=== PATIENT | female | born 1950 | race Asian ===

== ENCOUNTER 2020-04-02 06:54 | Day surgery (SDC) | payer MEDICARE, OTHER ==
[~2020-04-02] VITALS: Ht 157.5 cm; Wt 61.2 kg
[2020-04-02] MEDS ORDERED: LIDOCAINE 2% 100 MG/5 ML UJET TP ONE (07:44)
[2020-04-02] MEDS ORDERED: fentaNYL citrate 0.05 MG/ML VIAL ONE (07:44)
[2020-04-02] MEDS ORDERED: fentaNYL citrate 0.05 MG/ML VIAL IVP ONE (09:05)
== END 2020-04-02 09:15 | disposition home or self-care (01) ==
LOC: MDS 06:54 → EDSEX 06:54 → MFCC 07:03 → MDS 09:15
PROVIDERS: ATTEND Internal Medicine Gastroenterology
DX: Z12.11 Encounter for screening for malignant neoplasm of colon (principal); K63.5 Polyp of colon; I48.19 Other persistent atrial fibrillation; Z85.3 Personal history of malignant neoplasm of breast; Z90.710 Acquired absence of both cervix and uterus; Z20.828 Contact with and (suspected) exposure to other viral communicable diseases
CPT/HCPCS: 45385; J3010; U0003

== ENCOUNTER 2024-01-17 20:55 | Emergency (ER) | payer MEDICARE, OTHER ==
[~2024-01-17] VITALS: Ht 157.5 cm; Wt 66.7 kg
[2024-01-17 21:04] VITALS: BP 145/88; PULSE 96; RESP 16; TEMP 98; O2SAT 98
[2024-01-17] MEDS ORDERED: ACET500T99 PO (22:27)
[2024-01-17] MEDS ORDERED: CYCL-711 PO (22:27)
[2024-01-17] MEDS: ACETAMINOPHEN EXTRA STRENGTH 500 MG TAB PO ONE (22:56)
== END 2024-01-17 22:58 | disposition home or self-care (01) ==
LOC: MED 20:55
DX: S43.402A Unspecified sprain of left shoulder joint, initial encounter (principal); R07.9 Chest pain, unspecified; I48.91 Unspecified atrial fibrillation; Z79.899 Other long term (current) drug therapy; Z79.01 Long term (current) use of anticoagulants; V89.2XXA Person injured in unspecified motor-vehicle accident, traffic, initial encounter; Y93.89 Activity, other specified; Y92.410 Unspecified street and highway as the place of occurrence of the external cause; Y99.8 Other external cause status
CPT/HCPCS: 71045; 99283; Q0092